=== PATIENT | female | born 2000 | race Caucasian/White ===

== ENCOUNTER 2023-08-23 12:59 | Emergency (ER) | payer MEDICAID, SELFPAY ==
--- NOTE | ~2023-08-23 | US_ITS ---
EXAMINATION: US OBSTETRICAL ULTRASOUND CLINICAL INFORMATION: Abdominal pain with positive hCG COMPARISON: None available. LMP: 07/03/2023. Gestational age by maternal dates is 7 weeks 2 days. Estimated date of delivery by maternal dates is 04/08/2023. TECHNIQUE: Both transabdominal and endovaginal scanning was performed. FINDINGS: There is a single intrauterine gestational sac with visible yolk sac, embryo/fetus, and cardiac activity. There is no significant subchorionic hemorrhage or hematoma. HR: 116 beats per minute. CRL (crown rump length): 0.62 cm (6 weeks 4 days +/- 4 days). AMANDA (estimated date of delivery): 04/13/2024 +/- 4 days. MATERNAL ADNEXA: The right maternal ovary measures 1.8 x 1.6 x 1.7 cm. The left maternal ovary measures 2.3 x 1.7 x 2.3 cm. There is a 2.0 x 1.6 x 1.5 cm left ovarian cyst. There is no significant maternal adnexal mass. No maternal pelvic ascites. US/US OB <= 14 weeks fetus IMPRESSION: 1. Single intrauterine gestation with ultrasound gestational age of 6 weeks 4 days +/- 4 days. 2. Estimated date of delivery is 04/13/2024 +/- 4 days. 3. No maternal adnexal mass or pelvic ascites.
[2023-08-23 13:11] VITALS: BP 112/77; PULSE 84; RESP 18; TEMP 36.3; O2SAT 100; BMI 19.8
--- NOTE | 2023-08-23 13:14 | ED.ABDPAIN ---
HPI - Abdominal Pain General Chief Complaint: Abdominal Pain Stated Complaint: Abd pain, preg sent from walk in Time Seen by Provider: 08/23/23 21:22 Source: patient Mode of arrival: ambulatory Limitations: no limitations History of Present Illness ED Provider: Dr. 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 Patient went to an urgent care proximally 1 week ago and was diagnosed with a URI and started on azithromycin, the patient was unable to take this medication secondary to nausea. She states that yesterday she had significant nausea, she was able to drink fluid but not eat any you also had abdominal pain and went to [facility]. She states that after waiting about 6-8 hours she left and was not seen. Today she went to an urgent care clinic, was evaluated and sent to the emergency department for evaluation secondary to her . The patient is a , LMP 07/11/2023 , 6 weeks and 1 day. States that she has had a cough which is persistent and nonproductive. Subjective fever and chills. She has had rhinorrhea and sore throat. She states she has had chest pain with coughing and feels short of breath. She has had constant nausea with no vomiting. She has been able to drink fluids but not eat any food secondary to her nausea. She denied abdominal pain at the time of my evaluation. She states that she has an OBGYN appointment tomorrow. She has been taking vitamins. She has not on any antiemetics. Related Data Previous Rx's ?Medication ?Instructions ?Recorded metoclopramide HCl 10 mg tablet 10 mg PO Q6H PRN nausea and 08/23/23 (Reglan) vomiting #30 tabs Allergies Allergy/AdvReac Type Severity Reaction Status Date / Time amoxicillin Allergy Intermediate Diarrhea Verified 08/23/23 13:12 gluten Allergy Intermediate Diarrhea Verified 08/23/23 13:12 Review of Systems Review of Systems Yes all other systems are reviewed and are negative PMFSH Past Medical History [facility] Narrative: Social history: She does smoke cigarettes. She alcohol. She states that she was stopped both of these behavior since finding out she was . She denied drug use. Social History Social History Advance Directives: No Advance Directives Information Provided: No Do you have a plan to hurt others: No Plan Physical Exam ED Vital Signs: Vital Signs - 24 hr 08/23/23 13:11 08/23/23 19:40 08/23/23 22:01 Temperature 97.3 F 98.9 F 97.4 F Pulse Rate 84 88 74 Respiratory Rate 18 20 16 Blood Pressure 112/77 115/76 113/67 Pulse Oximetry 100 99 98 Oxygen Delivery Method Room Air Room Air Room Air 08/23/23 22:30 Temperature 97.4 F Pulse Rate 74 Respiratory Rate 16 Blood Pressure 113/67 Pulse Oximetry 98 Oxygen Delivery Method Room Air BMI result Body Mass Index 19.8 Vital signs were normal Exam: General: Awake, alert in no distress, she has a persistent, dry sounding cough Head: Normocephalic, atraumatic EENT: PERRL, Lids normal, sclera normal, conjunctiva normal, nose normal , ears normal, throat without erythema or exudates Neck: Supple, no adenopathy Lung: breath sounds symmetric, no wheezing, rales or rhonchi Chest: symmetric movement, nontender Heart: regular rate and rhythm, normal S1, S2 no murmurs or rubs Abdomen: soft, non-tender, nondistended, normal bowel sounds Back: no vertebral tenderness, no CVAT Extremities: no deformities, moves all extremities symmetrically Neuro: Awake, alert, oriented, normal speech, cranial nerves intact, moves all extremities symmetrically Psych: Pleasant, cooperative Course Course Course Narrative: This is an RME: Additional HPI, ROS, PE not included below will be deferred to primary provider. RME assessment and note performed by: Kenna Goldberg PA-C This is a [id number], with a hx of colitis and celiacs disease, who presents to the ER with complaints of nausea, vomiting and abdominal pain since last night. +HCG test at [facility] last week. No vaginal bleeding. +urinary frequency. LMP July 02. She is reporting lower suprapubic abdominal cramping. Patient states that approximately 5-6 days ago she was seen at an urgent care for URI and was given antibiotics. She has been unable to take with food due to nausea, and vomiting. Expect was called in by Frieda from urgent care. VSS. She has not seen an OBGYN for her care at this point. 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 Patient was seen at an urgent care yesterday and diagnosed with a URI and started on azithromycin but not able to take this medication due to nausea. Patient was in able to drink fluids but not eat any food secondary to her nausea. She went to [facility] yesterday for abdominal pain but was not seen after 8 hours and left. She was seen in urgent care today and sent to the emergency department for evaluation. Vital signs were normal. Abdominal exam did not reveal any significant abdominal tenderness. Patient does have a persistent, nonproductive sounding cough. Differential diagnosis: ?Includes but is not limited to not intrauterine , ectopic , URI, bronchitis, pneumonia, electrolyte abnormalities, Following evaluation was ordered: CBC, BMP, liver panel, quantitative beta-hCG, lipase, magnesium, COVID-19, RSV, influenza, ultrasound OB less than 14 weeks, ABO Rh type Patient was initially treated with the following: Metoclopramide 10 mg orally Course: My independent interpretation patient's laboratory evaluation as follows: CBC was normal. BNP was normal. Liver panel was normal. COVID-19, influenza and RSV were negative. Quantitative beta-hCG was 55,653. Blood type is A positive. Single intrauterine 6 weeks 4 days with AMANDA of 04/13/2024-this correlates with the patient's LMP gestational age of 6 weeks and 1 day. I did discuss these findings with the patient. Patient's cough is most likely caused by a viral URI and given her history of C diff colitis I do not think that an antibiotic would be appropriate at this time and I did discuss this with her. It is nausea is related to her and she was started on Reglan 10 mg every 6 hours as needed for nausea and vomiting. She was given her 1st dose of Reglan 10 mg orally here in the emergency department. Patient does have a follow-up appointment tomorrow with her OBGYN and she was given printed and verbal and discharged home. Admission/Observation Consideration of admission/observation: Escalation of care including admission/observation considered Lab Data MDM Lab Attestation statement: I reviewed the patient's lab results. 08/23/23 14:23 08/23/23 14:23 Labs: Lab Results 08/23/23 08/23/23 Range/Units 14:23 20:10 WBC 4.4 L (4.8-10.8) X10*3/uL RBC 4.90 (4.20-5.50) X10*6/uL Hgb 14.8 (12.0-16.0) g/dl Hct 42.2 (37.0-47.0) % MCV 86.1 (80.0-98.0) fL MCH 30.2 (27.0-33.0) pg MCHC 35.1 H (31.0-35.0) g/dl RDW 12.0 (11.0-16.0) % Plt Count 234 (160-400) X10*3/uL MPV 9.7 (9.4-12.3) fL Immature Gran % (Auto) 0.2 (0.0-0.4) % Neut % (Auto) 56.5 (45-73) % Lymph % (Auto) 28.2 (20-40) % Charlton % (Auto) 14.4 H (2-11) % Eos % (Auto) 0.5 (0-4) % Baso % (Auto) 0.2 (0-2) % Lymph # (Auto) 1.2 (1.2-4.9) X10*3/uL Charlton # (Auto) 0.6 (0.1-1.2) X10*3/uL Eos # (Auto) 0.0 (0.0-0.4) X10*3/uL Baso # (Auto) 0.0 (0.0-0.2) X10*3/uL Abs Immat Gran (auto) 0.01 (0.00-0.03) X10*3/uL Absolute Neuts (auto) 2.5 (2.0-8.3) x10*3/uL Absolute Nucleated RBC 0.000 (0.0-0.012) X10*3/uL Nucleated RBC % (auto) 0.0 (0.0-0.2) /100WBC Sodium 136 (135-145) mmol/L Potassium 3.8 (3.3-5.1) mmol/L Chloride 105 (96-108) mmol/L Carbon Dioxide 23 (22-29) mmol/L Anion Gap 12 (12-20) BUN 5 L (9-16) mg/dL Creatinine 0.58 (0.5-1.4) mg/dL Estim Creat Clear Calc 108.3 Estimated GFR > 60 Random Glucose 78 (60-115) mg/dL Calcium 9.1 (8.4-10.2) mg/dL Magnesium 2.1 (1.6-2.6) mg/dL Total Bilirubin 0.7 (0.0-1.0) mg/dL Direct Bilirubin 0.2 (0.0-0.5) mg/dL AST 21 (5-31) U/L ALT 22 (0-31) U/L Alkaline Phosphatase 63 (39-117) U/L Total Protein 7.0 (6.5-8.0) g/dL Albumin 4.4 (3.5-5.0) g/dL Lipase 10 (8-78) U/L Beta HCG, Quant 53533 mIU/mL Influenza Type A (PCR) NEGATIVE (Negative) Influenza Type B (PCR) NEGATIVE (Negative) RSV RNA Qual (PCR) NEGATIVE (Negative) SARS-CoV-2 RNA (RT-PCR) NEGATIVE (Negative) Blood Type A Positive Radiology Impression Discussion of test interpretation with radiology: I have reviewed the radiologist's reading. Radiologist Impression: US OB <= 14 weeks fetus IMPRESSION: 1. Single intrauterine gestation with ultrasound gestational age of 6 weeks 4 days +/- 4 days. 2. Estimated date of delivery is 04/13/2024 +/- 4 days. 3. No maternal adnexal mass or pelvic ascites. Dictated By: Naldo Martinez MD Prescription Management I considered prescription management with: Other (Antiemetics) Chronic Conditions Patient?s care impacted by: Other (Colitis) Medications Administered Discontinued Medications Generic Name Dose Route Start Last Admin Trade Name Freq PRN Reason Stop Dose Admin Metoclopramide HCl 10 mg 08/23/23 21:51 08/23/23 22:28 Metoclopramide Hcl Oral Soln 10 Mg/10 Ml Solution PO 08/23/23 21:52 10 mg ONCE ONE Administration Discharge Plan Discharge Clinical Impression: Intrauterine , First trimester , Vomiting or nausea of , Viral URI with cough Patient Disposition: Home, Self-Care Instructions: Upper Respiratory Infection (ED), First Trimester (ED) Additional Instructions: You had a CBC, CMP which were normal Your quantitative beta-hCG (blood test) was 55,653 which is in the expected range given your last menstrual period Your blood type was A positive Your COVID 19, influenza, RSV tests were negative. Your ultrasound did reveal 1 baby on the ultrasound measurements is 6 weeks and 4 days and this correlates with your last menstrual period of 07/11/2023 which suggests that you are 6 weeks and 1 day . This is reassuring that the ultrasound and your last menstrual period dates correlate suggesting that the baby is growing well. Please show the ultrasound report below to your OBGYN tomorrow Your cough is due to a virus and viruses do not respond to antibiotics therefore I am not prescribing an antibiotic for you today. Also with your history C difficile colitis you should only get started on antibiotics if they are absolutely indicated. Viral upper respiratory tract infection (colds) can sometimes last 2-6 weeks. Take your vitamins as directed on the bottle Take Reglan (metoclopramide) 10 mg pills, 1 pill every 6 hours as needed for nausea and vomiting Follow-up with your OBGYN as scheduled tomorrow. Please return to the emergency department if your symptoms get worse or if you develop any symptoms that are concerning to you. EXAMINATION: US OBSTETRICAL ULTRASOUND CLINICAL INFORMATION: Abdominal pain with positive hCG COMPARISON: None available. LMP: 07/03/2023. Gestational age by maternal dates is 7 weeks 2 days. Estimated date of delivery by maternal dates is 04/08/2023. TECHNIQUE: Both transabdominal and endovaginal scanning was performed. FINDINGS: There is a single intrauterine gestational sac with visible yolk sac, embryo/fetus, and cardiac activity. There is no significant subchorionic hemorrhage or hematoma. HR: 116 beats per minute. CRL (crown rump length): 0.62 cm (6 weeks 4 days +/- 4 days). AMANDA (estimated date of delivery): 04/13/2024 +/- 4 days. MATERNAL ADNEXA: The right maternal ovary measures 1.8 x 1.6 x 1.7 cm. The left maternal ovary measures 2.3 x 1.7 x 2.3 cm. There is a 2.0 x 1.6 x 1.5 cm left ovarian cyst. There is no significant maternal adnexal mass. No maternal pelvic ascites. US/US OB <= 14 weeks fetus IMPRESSION: 1. Single intrauterine gestation with ultrasound gestational age of 6 weeks 4 days +/- 4 days. 2. Estimated date of delivery is 04/13/2024 +/- 4 days. 3. No maternal adnexal mass or pelvic ascites. Dictated By: Naldo Martinez MD Prescriptions: New metoclopramide HCl [Reglan] 10 mg tablet 10 mg PO Q6H PRN (Reason: nausea and vomiting) Qty: 30 0RF Stand Alone Forms: Work/School Release Interventions: ED Discharge Assessment Last Done: 08/23/23 22:30 Discharge Date/Time: 08/23/23 22:31 Print Language: [place]
[2023-08-23 14:28] LABS: MANUAL DIFF FLAG NO
[2023-08-23 14:33] LABS: Basophils Percent Auto 0.2 % (0-2); Eosinophils Percent Auto 0.5 % (0-4); Hematocrit 42.2 % (37.0-47.0); Hemoglobin 14.8 g/dl (12.0-16.0); Imm Gran Abs Auto 0.01 X10*3/uL (0.00-0.03); Imm Gran Pct Auto 0.2 % (0.0-0.4); Lymphocytes Absolute Auto 1.2 X10*3/uL (1.2-4.9); Lymphocytes Percent Auto 28.2 % (20-40); Mean Corpuscular HGB Conc 35.1 g/dl (31.0-35.0); Mean Corpuscular Hemoglobin 30.2 pg (27.0-33.0); Mean Corpuscular Volume 86.1 fL (80.0-98.0); Mean Platelet Volume 9.7 fL (9.4-12.3); Monocytes Absolute Auto 0.6 X10*3/uL (0.1-1.2); Monocytes Percent Auto 14.4 % (2-11); Neutrophils Absolute Auto 2.5 x10*3/uL (2.0-8.3); Neutrophils Percent Auto 56.5 % (45-73); Platelet Count 234 X10*3/uL (160-400); White Blood Count 4.4 X10*3/uL (4.8-10.8)
[2023-08-23 14:45] LABS: Alanine Aminotransferase 22 U/L (0-31); Albumin Level 4.4 g/dL (3.5-5.0); Alkaline Phosphatase 63 U/L (39-117); Anion Gap 12 (12-20); Aspartate Amino Transferase 21 U/L (5-31); Bilirubin Direct 0.2 mg/dL (0.0-0.5); Bilirubin Total 0.7 mg/dL (0.0-1.0); Blood Urea Nitrogen 5 mg/dL (9-16); Calcium 9.1 mg/dL (8.4-10.2); Carbon Dioxide 23 mmol/L (22-29); Chloride 105 mmol/L (96-108); Creatinine Clr Calc Pharmacy 108.3; Estimated Glomerular Filt Rate > 60; Glucose Random 78 mg/dL (60-115); Lipase 10 U/L (8-78); Magnesium 2.1 mg/dL (1.6-2.6); Potassium 3.8 mmol/L (3.3-5.1); Sodium 136 mmol/L (135-145)
[2023-08-23 15:14] LABS: HCG Quantitative 55653 mIU/mL
[2023-08-23 19:40] VITALS: BP 115/76; PULSE 88; RESP 20; TEMP 37.2; O2SAT 99
[2023-08-23 20:55] LABS: Influenza A PCR NEGATIVE (Negative); Influenza B PCR NEGATIVE (Negative); Resp Syncy Virus RNA Qual PCR NEGATIVE (Negative); SARS COV2 PCR INHOUSE NEGATIVE (Negative)
[2023-08-23 22:01] VITALS: BP 113/67; PULSE 74; RESP 16; TEMP 36.3; O2SAT 98
[2023-08-23] MEDS: Metoclopramide HCl Oral Soln 10 MG/10 ML SOLUTION PO (22:28)
[2023-08-23 22:30] VITALS: BP 113/67; PULSE 74; RESP 16; TEMP 36.3; O2SAT 98
== END 2023-08-23 22:31 | disposition home or self-care (01) ==
PROVIDERS: Physician Assistant Medical; Emergency Provider Emergency Medicine Emergency Medical Services; PCP Pediatrics
DX: O21.0 Mild hyperemesis gravidarum (principal); O99.511 Diseases of the respiratory system complicating pregnancy, first trimester; J06.9 Acute upper respiratory infection, unspecified; Z3A.01 Less than 8 weeks gestation of pregnancy; Z03.818 Encounter for observation for suspected exposure to other biological agents ruled out; Z79.899 Other long term (current) drug therapy
CPT/HCPCS: 0241U; 36415; 76801; 80048; 80076; 83690; 83735; 84702; 85025; 86900; 86901; 99283; 99284